=== PATIENT | male | born 1955 | race Native Hawaiian/Other Pacific Islander ===

== ENCOUNTER 2020-05-15 12:25 | Emergency (ER) | payer OTHER, BC ==
[~2020-05-15] VITALS: Ht 182.9 cm; Wt 101.6 kg
[2020-05-15 12:33] VITALS: TEMP 98.2
[2020-05-15 13:05] LABS: PLATELET COUNT 219 K/uL (142-355)
[2020-05-15 13:11] LABS: POTASSIUM 4.7 mmol/L (3.6-5.2); SODIUM 137 mmol/L (136-145)
[2020-05-15 13:42] LABS: PARTIAL THROMBOPLASTIN TIME 27.4 SECONDS (24.5-33.6)
[2020-05-15 14:30] VITALS: BP 123/73
== END 2020-05-15 14:42 | disposition home or self-care (01) ==
LOC: ED 12:25
PROVIDERS: Hospitalist
DX: R07.89 Other chest pain (principal)
CPT/HCPCS: 36415; 80053; 82550; 83880; 84484; 85027; 85379; 85610; 85730; 93005; 99284

== ENCOUNTER 2021-12-29 12:11 | Outpatient (CLI) | payer OTHER, BC | END 2021-12-29 19:06 | disposition home or self-care (01) | LOC: US 12:11 | PROVIDERS: ATTEND Internal Medicine | DX: R20.2 Paresthesia of skin (principal); R60.0 Localized edema ==